=== PATIENT | female | born 1950 | race Caucasian/White ===

== ENCOUNTER 2017-02-07 01:25 | Emergency (ER) | payer OTHER ==
[~2017-02-07 01:25] MED LIST: AFLURIA SC; BENTYL20 MG PO; CIPRO 500MG TA500 MG PO; CO-Q-10 100 MG-1 SGL PO; COLACE100 M1 PO; CRESTOR 5MG5 MG PO; DICYCLOMINE HCL20 M1 PO; DIOVAN HCT 12.51 TAB PO; HYDROXYCHLOROQ200 M2 PO; METFORMIN HCL500 M3 PO; METRONIDAZOLE500 MG PO; NEXIUM40 M1 PO; PERCOCET 325 MG1 TA2 PO; PERCOCET 325 MG1 TAB PO; PREDNISONE5 MG PO; PROAIR HFA8.5 GM INH; SYNTHROID0.175 MG PO; SYNTHROID75 MCG PO; TRAMADOL HCL50 MG PO; VAYAROL 232.5 M1 CAP PO; VITAMIN D31000 UNI1 PO; VITAMIN D32000 IU PO; ZOFRAN ODT4 MG SL
--- NOTE | 2017-02-07 02:03 | ED GI/GU/ABDOMINAL COMPLAINT ---
History of Present Illness General Chief Complaint: Abdominal Pain/Flank Pain Stated Complaint: LOWER ABD PAIN SINCE LAST NIGHT Source: patient Exam Limitations: no limitations Vital Signs & Intake/Output Vital Signs & Intake/Output Vital Signs Date Time Temp Pulse Resp B/P B/P Pulse O2 O2 Flow FiO2 Mean Ox Delivery Rate 02/07 0322 97.6 70 20 160/78 96 Room Air 02/07 0136 97.0 76 22 143/81 98 Allergies Uncoded Allergies: SANDERS (ASTHMA 05/14/14) Reconcile Medications Albuterol Sulfate (Proair Hfa) 90 MCG HFA.AER.AD 2 PUF INH Q4-6 PRN PRN SOB ( Reported) Cholecalciferol (Vitamin D3) (Vitamin D3) 1,000 UNIT CAPSULE 1 CAP PO DAILY VITAMIN (Reported) Ciprofloxacin HCl (Cipro) 500 MG TABLET 1 TAB PO BID Diverticulitis Coenzyme Q10/Vitamin E (Co-Q-10 100 MG-1 Iu) 1 SGL SGL 2 CAP PO BID SUPPLEMENT (Reported) Dicyclomine HCl 20 MG TABLET 1 TAB PO BID IBS (Reported) Docusate Sodium (Colace) 100 MG CAPSULE 1 CAP PO BID STOOL SOFTENER (Reported ) Esomeprazole (Nexium) 40 MG CAPSULE.DR 1 CAP PO DAILY IBS (Reported) FLU VACCINE TS 5019-3728(5YR+) (Afluria 6401-2746) 45 MCG/0.5 ML VIAL 1 INJ SC ONCE FLU (Reported) Hydroxychloroquine Sulfate 200 MG TABLET 1 TAB PO BID ARTHRITIS (Reported) Levothyroxine Sodium (Synthroid) 75 MCG TABLET 1 TAB PO DAILY THYROID ( Reported) Metformin HCl 500 MG TABLET 1 TAB PO BID BID (Reported) Metronidazole (Flagyl) 500 MG TABLET 1 TAB PO BID Diverticulitis OXYCODONE HCL/ACETAMINOPHEN (Percocet 10-325 MG Tablet) 325 MG/10 MG TAB 1 TAB PO Q8 PRN PAIN PHYTOSTEROL/OM-3/DHA/EPA/FISH (Vayarol Capsules) (Unknown Strength) CAPSULE 2 PO BID SUPPLEMENT (Reported) Prednisone 5 MG TAB 1 TAB PO DAILY ARTHRITIS (Reported) Triage Note: PER PT ABD PAIN DIFFUSE RT TO L AND INTO BACK NO NAUSEA OR DIARRHEA NO URINE CO BUT REPORTS PAIN TO PUBIC ARE PAIN 9/10 ON SCALE Triage Nurses Notes Reviewed? yes ? n Is pt currently ? No HPI: 66y F coming in for sudden onset of LLQ ab pain x 3 hours with increased frequency of urination. The pain is constant and does not radiate, rated 5/10. Pt denied N/V/D and regular appetitite/dinner foods. She had hx of kidney stone 4 yrs ago, PMH of DM, HTN, HLD, and asthma. Pt denied fever/night sweat/weight change/mood change/insomnia, Cough/SOB/CP/ Palpitation/exercise intolerance, or other skin/musculoskeletal/neurological disorders. (ROBERTA GATES,NAYA FORD) Past History Travel History Traveled to [place] past 21 day No Medical History Any Pertinent Medical History? see below for history Neurological: NONE EENT: NONE Cardiovascular: HTN, CHOL Respiratory: COPD Gastrointestinal: IBS,GERD Hepatic: NONE Renal: NONE, nephrolithiasis Musculoskeletal: NONE Psychiatric: NONE Endocrine: NIDDM, THYROID History of MRSA: No History of VRE: No History of CDIFF: No Pneumonia Vaccine: 06/24/02 Influenza Vaccine: 04/15/13 Surgical History Surgical History: non-contributory Psychosocial History Who do you live with Spouse Services at Home None What is your primary language Kazakh Tobacco Use: Never used Family History Family History, If Any: Relation not specified for: Cholecystitis FH: diabetes mellitus FH: prostate cancer Hx Contributory? No (ROBERTA GATES,NAYA FORD) Review of Systems Review of Systems Constitutional: Reports: see HPI. Comments Constitutional: no significant weight change. No fatigue, fever, night sweats, or exercise intolerance. Skin: no jaundice, hives, eczema, rashes, or abnormal moles. Respiratory: no cough, wheezing, shortness of breath, or coughing up blood. Cardiovascular: no SOB, palpitations, chest pain, arm pain on exertion, or leg swelling. Gastrointestinal: LLQ ab pain. Normal appetite. no vomiting, diarrhea, constipation, or rectal bleeding. Genitourinary: increased frequency of urination. No incontinence, hematuria, difficulty urinating. Musculoskeletal: no muscle aches or weakness, no arthralgias/joint pain, or back pain; Neurologic: no loss of consciousness or balance; no weakness, numbness, seizures , or dizziness. Psych: no depression, anxiety, sleep disturbances, homicidal thoughts, or suicidal thoughts. (ROBERTA GATES,NAYA FORD) Review of Systems EENTM: Reports: no symptoms. Respiratory: Reports: no symptoms. Cardiovascular: Reports: no symptoms. GI: Reports: see HPI, abdominal pain. Genitourinary: Reports: see HPI, dysuria. Musculoskeletal: Reports: see HPI, back pain. Skin: Reports: no symptoms. Neurological/Psychological: Reports: no symptoms. Hematologic/Endocrine: Reports: no symptoms. Immunologic/Allergic: Reports: no symptoms. All Other Systems: Reviewed and Negative (ALEJANDRO GATES,SHARONDA Mcnally) Physical Exam Physical Exam Gastrointestinal: tenderness Comments: Head: normocephalic and atraumatic. Lungs: no dyspnea and good air movement. no wheezing, rales/crackles, or rhonchi and breath sounds normal. Cardiovascular: Apical Impulse ot displaced. normal S1 and S2; no murmurs, rubs, or gallops; and RRR. no carotid bruits. Abdomen: LLQ pain upon palpation. normal bowel sound. No masses, or CVA tenderness and soft and non-distended. Back: normal curvature; No tenderness upon palpation. Musculoskeletal: normal tone and strength (5/5 throughout) . Extremities: no cyanosis, edema, varicosities, or palpable cord. Skin: no rash, lesions, ulcer, induration, nodules, jaundice, or abnormal nevi and good turgor. Core Measures ACS in differential dx? No Severe Sepsis Present: No Septic Shock Present: No (ROBERTA GATES,NAYA FORD) Physical Exam General Appearance: well developed/nourished, alert, awake, anxious, mild distress Head: atraumatic, normal appearance Eyes: Bilateral: PERRL, EOMI. Ears, Nose, Throat, Mouth: hearing grossly normal, moist mucous membrane Neck: normal inspection, supple, full range of motion Respiratory: normal breath sounds, chest non-tender, no respiratory distress, lungs clear Cardiovascular: regular rate/rhythm, normal peripheral pulses Gastrointestinal: normal bowel sounds, soft, no organomegaly, guarding, rebound Back: normal inspection, normal range of motion, NO CVA TENDERNESS Extremities: normal range of motion Neurologic/Psych: no motor/sensory deficits, awake, alert, oriented x 3, normal gait, normal mood/affect Skin: intact, normal color, warm/dry (ALEJANDRO GATES,SHARONDA Mcnally) Progress Differential Diagnosis: diverticulitis, hernia, inflamm bowel dis, UTI/pyelo Plan of Care: Orders Procedure Date/time Status Add-on Test (ER Only) 02/07 235 Active COMPREHENSIVE METABOLIC PANEL 02/07 201 Complete CBC WITHOUT DIFFERENTIAL 02/07 201 Complete CULTURE,URINE 02/07 145 Active URINALYSIS 02/08 140 Complete Current Medications Sig/Tri Start time Last Medication Dose Stop Time Status Admin Ampicillin Sodium/ 3,000 MG ONCE ONE 02/08 400 UNVr 02/07 Sulbactam Sodium 02/07 429 0359 (Unasyn) Sodium Chloride 100 ML (Normal Saline 0.9%) Ketorolac 30 MG ONCE ONE 02/07 215 CAN Tromethamine 02/08 216 (Toradol) Laboratory Tests 02/07/17209: Anion Gap 12, Estimated GFR > 60, BUN/Creatinine Ratio 26.7 H, Glucose 123 H, Calcium 9.7, Total Bilirubin 0.5, AST 22, ALT 30, Alkaline Phosphatase 70, Total Protein 7.5, Albumin 4.4, Globulin 3.1, Albumin/Globulin Ratio 1.4, CBC w Diff NO MAN DIFF REQ, RBC 4.33, MCV 89.7, MCH 30.1, RDW 13.6, MPV 8.6, Gran % 68.7, Lymphocytes % 20.4 L, Monocytes % 7.9, Eosinophils % 2.6, Basophils % 0.4, Absolute Granulocytes 8.0 H, Absolute Lymphocytes 2.4, Absolute Monocytes 0.9 H, Absolute Eosinophils 0.3, Absolute Basophils 0, PUBS MCHC 33.6 02/07/17144: Urinalysis LIGHT H, Urine Color YEL, Urine Clarity HAZY H, Urine pH 6.0, Ur Specific [place] 1.020, Urine Protein NEG, Urine Ketones NEG, Urine Nitrite NEG, Urine Bilirubin NEG, Urine Urobilinogen 0.2, Ur Leukocyte Esterase SMALL H, Ur Microscopic SEDIMENT EXAMINED, Urine RBC 3-5, Urine WBC 5-10 H, Ur Epithelial Cells MOD H, Urine Bacteria RARE H, Urine Mucus MOD H, Urine Hemoglobin TRACE -INTACT, Urine Glucose NEG Microbiology 02/07 145 URINE ROUT: Urine Culture - RECD 02/07/2017 0357 Pt's lab is borderline infection and CT abd returned mild diverticulitis. Pt's ab pain persists, yet did not want to stay in ER due to family issues. Dr. Otto and I discussed our plan of care with pt and her . They fully understood and would accept IV ABx here then go home with 10-day course of ABx. Will return to ER if ab pain gets worse. (ROBERTA GATES,NAYA FORD) Diagnostic Imaging: Discussed w/RAD: CT Scan. Radiology Impression: PATIENT: JASBIR RUFF PRESENT AGE: 66 PATIENT ACCOUNT NO: [id number] : 49 LOCATION: ER ORDERING PHYSICIAN: NAYA GRANADOS MD SERVICE DATE: 02/07/17 EXAM TYPE: CAT - CT ABD & PELVIS W IV CONTRAST EXAMINATION: CT ABDOMEN AND PELVIS WITH CONTRAST CLINICAL INFORMATION: Abdominal pain COMPARISON: 07/31/2016 TECHNIQUE: 95 mL Optiray 320 intravenous contrast was utilized. Multidetector helical imaging was performed through the abdomen and pelvis. Coronal and sagittal reformatted images were created. FINDINGS: The lung bases are clear. The liver is enlarged and demonstrates homogeneous attenuation without intrahepatic biliary ductal dilatation. Patient is status post cholecystectomy. There is partial fatty replacement of the pancreas. The spleen and adrenal glands are within normal limits. Bilateral nephrograms are symmetric. No hydronephrosis. No obstructing renal or ureteral calculi are present. The urinary bladder is minimally distended and not well evaluated. Patient is status post hysterectomy. Colonic diverticulosis is present. There is mild associated stranding adjacent to the mid sigmoid colon, consistent with acute diverticulitis. No pericolonic abscess or free air is seen. No evidence of bowel obstruction. The appendix is nondilated. Scattered atherosclerotic calcifications are present. No retroperitoneal or pelvic lymphadenopathy is seen. Degenerative changes are present in the spine and hips. IMPRESSION: 1. Sigmoid colon diverticulitis. Correlation with recent or followup colonoscopy is advised to exclude an underlying mass lesion. 2. Hepatomegaly. DICTATED BY: MICHELLE TORIBIO MD DATE/TIME DICTATED:02/07/17332 PACKAGE MAKER:RADHA DATE/TIME TRANSCRIBED:02/07/17332 CONFIDENTIAL, DO NOT COPY WITHOUT APPROPRIATE AUTHORIZATION. <Electronically signed in Other Vendor System> SIGNED BY: MICHELLE TORIBIO MD 02/07/17 0345 (ROBERTA GATES,NAYA FORD) Initial ED EKG: none (ALEJANDRO GATES,SHARONDA Mcnally) Departure Departure Disposition: HOME OR SELF CARE Condition: Stable Clinical Impression Primary Impression: Diverticulitis Qualifiers: Diverticulitis site: large intestine Diverticulitis bleeding: without bleeding Diverticulitis complication: without perforation or abscess Qualified Code: K57.32 - Diverticulitis of large intestine without perforation or abscess without bleeding Referrals: DELORIS SINHA MD (PCP/Family) Additional Instructions: Please be compliant with your antibiotics/medications and follow up with your primary care doctor for current symptoms. Please avoid alcohol during your 10-day course of antibiotics. Please ask your primary care doctor to re-check your renal function after 2 days from today, before re-starting Metformin. Please come back to ER if your abdominal pain worsens. Departure Forms: Customer Survey General Discharge Information Prescriptions: Current Visit Scripts Ciprofloxacin HCl (Cipro) 1 TAB PO BID #20 TAB Metronidazole (Flagyl) 1 TAB PO BID #20 TAB (ROBERTA GATES,NAYA FORD) Resident Co-Sign Statement Statement: ED Attending supervision documentation- [X] I saw and evaluated the patient. I have also reviewed all the pertinent lab results and diagnostic results. I agree with the findings and the plan of care as documented in the Resident's documentation. [X] I have reviewed the ED Record and agree with the Resident's documentation. [] Additions or exceptions (if any) to the Resident's note and plan are summarized below: [Patient presented with worsening left lower quadrant pain that radiates to the suprapubic area as well as around to the left and right flank area and across to her right lower quadrant. Similar symptoms in the past and the patient states that she has been treated with Cipro and Flagyl 4. There is no nausea and vomiting. Positive dysuria. On exam she has tenderness of lower quadrant with rebound and peritoneal signs. There are no fevers or chills. NO CVA tenderness. Her CAT scan shows mild sigmoid diverticulitis. Patient states that she is feeling better after repeat IV Toradol. On reexamination she continues to have rebound tenderness and guarding. Patient advised that she should stay in the hospital for IV antibiotics given the peritoneal findings. Patient insists on going home. Patient verbally understands the risks of going home while she has significant abdominal pain. is at the bedside. Patient advised to not take her metformin and have her renal function rechecked in 2 days. If her creatinine remains normal then she may resume the metformin.] (ALEJANDRO GATES,SHARONDA Mcnally)
[2017-02-07 02:17] LABS: ABSOLUTE BASOPHIL COUNT 0 /CUMM (0.0-0.2); ABSOLUTE EOSINOPHIL COUNT 0.3 /CUMM (0.0-0.7); ABSOLUTE LYMPH COUNT 2.4 /CUMM (1.2-3.4); ABSOLUTE MONOCYTE COUNT 0.9 /CUMM (0.10-0.60); BASOPHIL % 0.4 % (0.0-2.0); EOSINOPHIL % 2.6 % (0-5); GRANULOCYTE % 68.7 % (42.2-75.2); HEMATOCRIT 38.8 % (37-47); MEAN CORPUSCULAR HGB 30.1 PG (27.0-31.0); MEAN CORPUSCULAR HGB CONC 33.6 G/DL (33.0-37.0); MEAN CORPUSCULAR VOLUME 89.7 FL (81.0-99.0); MEAN PLATELET VOLUME 8.6 FL (7.4-10.4); PLATELET COUNT 274 /CUMM (130-400); RBC DISTRIBUTION WIDTH 13.6 % (11.5-14.5); RED BLOOD CELL CT 4.33 /CUMM (4.20-5.40); WHITE BLOOD CELL COUNT 11.6 /CUMM (4.8-10.8)
[2017-02-07 03:22] VITALS: BP 160/78
--- NOTE | 2017-02-07 03:45 | CT SCAN REPORT ---
EXAMINATION: CT ABDOMEN AND PELVIS WITH CONTRAST CLINICAL INFORMATION: Abdominal pain COMPARISON: 07/31/2016 TECHNIQUE: 95 mL Optiray 320 intravenous contrast was utilized. Multidetector helical imaging was performed through the abdomen and pelvis. Coronal and sagittal reformatted images were created. FINDINGS: The lung bases are clear. The liver is enlarged and demonstrates homogeneous attenuation without intrahepatic biliary ductal dilatation. Patient is status post cholecystectomy. There is partial fatty replacement of the pancreas. The spleen and adrenal glands are within normal limits. Bilateral nephrograms are symmetric. No hydronephrosis. No obstructing renal or ureteral calculi are present. The urinary bladder is minimally distended and not well evaluated. Patient is status post hysterectomy. Colonic diverticulosis is present. There is mild associated stranding adjacent to the mid sigmoid colon, consistent with acute diverticulitis. No pericolonic abscess or free air is seen. No evidence of bowel obstruction. The appendix is nondilated. Scattered atherosclerotic calcifications are present. No retroperitoneal or pelvic lymphadenopathy is seen. Degenerative changes are present in the spine and hips. IMPRESSION: 1. Sigmoid colon diverticulitis. Correlation with recent or followup colonoscopy is advised to exclude an underlying mass lesion. 2. Hepatomegaly.
[2017-02-07] MEDS ORDERED: CIPRO500 M1 PO (04:01)
[2017-02-07] MEDS ORDERED: FLAGYL500 MG PO (04:01)
== END 2017-02-07 04:32 ==
LOC: ERH 01:25
DX: K57.92 Diverticulitis of intestine, part unspecified, without perforation or abscess without bleeding (principal); I10 Essential (primary) hypertension; E11.9 Type 2 diabetes mellitus without complications; Z79.84 Long term (current) use of oral hypoglycemic drugs
CPT/HCPCS: 74177; 81001; 87086; 87147; 96374; 96375; J1885